=== PATIENT | female | born 1965 | race Caucasian/White ===

== ENCOUNTER 2017-03-19 07:58 | Emergency (ER) | payer MEDICARE, OTHER ==
[~2017-03-19] VITALS: Ht 170.2 cm; Wt 83.9 kg
[~2017-03-19 07:58] MED LIST: ADVAIR 500-501 EACH IH; ALBUTEROL SULF8.5 GM INH; ASPIRIN EC81 MG PO; COREG12.5 MG PO; CYPROHEPTADINE H4 MG PO; FISH OIL300 MG PO; GABAPENTIN100 MG PO; LASIX20 MG PO; LEXAPRO10 MG PO; LISINOPRIL2.5 MG PO; MULTI VIT; NORCO 5-325 TA1 EACH PO; OXYCODONE HCL5 MG PO; PERCOCET 10-321 EACH PO; PREDNISONE20 MG PO; PRILOSEC20 MG PO; SINGULAIR10 MG PO; ULTRAM50 MG PO
[2017-03-19] MEDS ORDERED: PREDNISONE10 MG PO (08:10)
[2017-03-19] MEDS ORDERED: SPIRONOLACTONE25 MG PO (08:10)
[2017-03-19] MEDS ORDERED: ADVAIR HFA 115-12 GM INH (08:19)
--- OUTSIDE RECORDS SUMMARY | 2017-03-19 08:22 | XMS | Clinical Summary ---
Demographics + + + | Address | [address] | | | [place] [address] | + + + | Home Phone | | + + + | Preferred Language | Unknown | + + + | Marital Status | Single | + + + | Amish Affiliation | Unknown | + + + | Race | White | + + + | Ethnic Group | Not or | + + + Author + + + | Author | [facility] | + + + | Organization | [facility] | + + + | Address | Unknown | + + + | Phone | Unavailable | + + + Support +------+ + + + +-------+ | Name | Relationship | Address | Phone | +------+ + + + +-------+ ECON | [address] | | [place] | [phone] | +------+ + + + +-------+ Care Team Providers + +------+ + | Care Consultative Sales Associate Name | Role | Phone | + +------+ + | Louis Otoole MD | PP | Unavailable | + +------+ + Source Comments [facility] is fully live on both [facility] Ambulatory and [facility] InPatient.[facility] Allergies + + + + + + | Active Allergy | Reactions | Severity | Noted | Comments | | | | | Date | | + + + + + + | Olmesartan | | | 05/15/19 | | | | | | 09 | | + + + + + + | Metoclopramide Hcl | | | 05/15/19 | Raised LFTs | | | | | 09 | | + + + + + + Current Medications + + +-------+---------+------+------+-------+ | Prescription | Sig. | Disp. | Refills | Star | End | Statu | | | | | | t | Date | s | | | | | | Date | | | + + +-------+---------+------+------+-------+ | COREG 25 mg Oral | Take 25 mg by mouth | | | | | Activ | | Tablet | two times daily. | | | | | e | | | Administer with | | | | | | | | food. | | | | | | + + +-------+---------+------+------+-------+ | LANOXIN 250 mcg | Take 250 mcg by | | | | | Activ | | Oral Tablet | mouth once daily. | | | | | e | + + +-------+---------+------+------+-------+ | LASIX 40 mg Oral | Take 40 mg by mouth | | | | | Activ | | Tablet | once daily. | | | | | e | + + +-------+---------+------+------+-------+ | SINGULAIR 10 mg | Take 10 mg by mouth | | | | | Activ | | Oral Tablet | once daily in the | | | | | e | | | evening. | | | | | | + + +-------+---------+------+------+-------+ | PRILOSEC 20 mg | Take 20 mg by mouth | | | | | Activ | | Oral Capsule, | once daily. | | | | | e | | Delayed | | | | | | | | Release(E.C.) | | | | | | | + + +-------+---------+------+------+-------+ | spironolactone 25 | Take 25 mg by mouth | | | | | Activ | | mg Oral Tablet | once daily. | | | | | e | + + +-------+---------+------+------+-------+ Active Problems Not on file Social History + +-------+ +--------+------+ | Tobacco Use | Types | Packs/Day | Years | Date | | | | | Used | | + +-------+ +--------+------+ | Never Smoker | | | | | + +-------+ +--------+------+ + + + | Sex Assigned at | Date Recorded | | | | + + + | Not on file | | + + + Last Filed Vital Signs + + + + | Vital Sign | Reading | Time Taken | + + + + | Blood Pressure | 100/70 | 05/15/2008 2:31 PM PST | + + + + | Pulse | 83 | 05/15/2008 2:31 PM PST | + + + + | Temperature | - | - | + + + + | Respiratory Rate | - | - | + + + + | Oxygen Saturation | 95% | 05/15/2008 2:31 PM PST | + + + + | Inhaled Oxygen | - | - | | Concentration | | | + + + + | Weight | 75 kg (165 lb 4.8 | 05/15/2008 2:31 PM PST | | | oz) | | + + + + | Height | 167.6 cm (5' 6") | 05/15/2008 2:31 PM PST | + + + + | Body Mass Index | 26.68 | 05/15/2008 2:31 PM PST | + + + + Plan of Treatment + + + + + | Health Maintenance | Due Date | Last Done | Comments | + + + + + | INFLUENZA VACCINE | | | | | (FLU SHOT) | 7 | | | + + + + + Results Not on filefrom Last 3 Months
== END 2017-03-19 08:52 | disposition home or self-care (01) ==
LOC: ED 07:58
DX: J45.901 Unspecified asthma with (acute) exacerbation (principal); J06.9 Acute upper respiratory infection, unspecified; I50.9 Heart failure, unspecified; Z90.710 Acquired absence of both cervix and uterus; Z90.49 Acquired absence of other specified parts of digestive tract; Z88.8 Allergy status to other drugs, medicaments and biological substances; Z79.899 Other long term (current) drug therapy; Z79.52 Long term (current) use of systemic steroids; Z79.82 Long term (current) use of aspirin
CPT/HCPCS: 94640; 99283

== ENCOUNTER 2017-06-17 07:58 | Emergency (ER) | payer MEDICARE, OTHER ==
[~2017-06-17] VITALS: Ht 170.2 cm; Wt 83.9 kg
[~2017-06-17 07:58] MED LIST changes: +ADVAIR HFA 115-12 GM INH; +PREDNISONE10 MG PO; +SPIRONOLACTONE25 MG PO
[2017-06-17] MEDS ORDERED: FLUTICASONE PRO16 GM NAS (08:07)
--- OUTSIDE RECORDS SUMMARY | 2017-06-17 08:16 | XMS | Clinical Summary ---
Demographics + + + | Address | [address] | | | [place] [address] | + + + | Home Phone | | + + + | Preferred Language | Unknown | + + + | Marital Status | Single | + + + | Restorationism Affiliation | Unknown | + + + [...] | Unavailable | + + + Support + + + + + | Name | Relationship | Address | Phone | + + + + + | ALYSSA CAO | ECON | [address] | | | | | [place] | | | | | [phone] | | + + + + + Care Team Providers + +------+ + | Care Engagement Executive Name | Role | Phone | + +------+ + | Louis Otoole MD | PP | Unavailable | + +------+ + Source Comments [facility] is fully live on both [facility] and [facility] Allergies + + + + + + [...]
--- OUTSIDE RECORDS SUMMARY | 2017-06-17 08:16 | XMS | Clinical Summary ---
Demographics + + + | Address | [address] | | | [place] [address] | + + + | Home Phone | | + + + | Preferred Language | Unknown | + + + | Marital Status | Single | + + + | Taoism Affiliation | Unknown | + + + [...] + | ALYSSA CAO | ECON | [address] | | | | | [place] | | | | | [phone] | | + + + + + Care Team Providers + +------+ + | Care Swimming Pool Serviceperson Name | Role | Phone | + +------+ + | Louis Otoole MD | PP | Unavailable | + +------+ + Source Comments [facility] Allergies + + + + + [...]
[2017-06-17] MEDS ORDERED: ADVAIR 250-501 EACH INH (09:50)
[2017-06-17] MEDS ORDERED: ALBUTEROL2.5 MG/3 M INH (09:50)
[2017-06-17] MEDS ORDERED: PREDNISONE10 MG PO (09:50)
== END 2017-06-17 10:08 | disposition home or self-care (01) ==
LOC: ED 07:58
DX: J45.901 Unspecified asthma with (acute) exacerbation (principal); I50.9 Heart failure, unspecified; Z88.8 Allergy status to other drugs, medicaments and biological substances; Z79.899 Other long term (current) drug therapy; Z79.82 Long term (current) use of aspirin
CPT/HCPCS: 71045; 80053; 83880; 85025; 96374; 99284; J2930

== ENCOUNTER 2017-08-08 07:33 | Emergency (ER) | payer MEDICARE, OTHER ==
[~2017-08-08] VITALS: Ht 170.2 cm; Wt 83.9 kg
[~2017-08-08 07:33] MED LIST changes: +ADVAIR 250-501 EACH INH; +ALBUTEROL2.5 MG/3 M INH; +FLUTICASONE PRO16 GM NAS
[2017-08-08] MEDS ORDERED: AUGMENTIN 875-1 EACH PO (12:26)
[2017-08-08] MEDS ORDERED: PROVENTIL HFA6.7 GM INH (12:26)
--- NOTE | 2017-08-08 13:50 | EKG ---
[facility] [address] [place] [address] Signed Sinus tachycardia with 1st degree AV block T wave abnormality, consider lateral ischemia Abnormal ECG No previous ECGs available Confirmed by PATRIA MARIO MD ([id number]) on 08/08/2017 1:50:03 PM Electronically Signed By: PATRIA MARIO MD 08/08/17 1350 PATIENT NAME: JAROD LINDQUIST TOO Electrocardiogram DATE OF : 61 PHYSICIAN: PATRIA MARIO MD REPORT #: [id number] REPORT IS CONFIDENTIAL AND NOT TO BE RELEASED WITHOUT AUTHORIZATION
--- NOTE | 2017-08-08 13:51 | EKG ---
[facility] [address] [place] [address] Signed Sinus tachycardia Possible Left atrial enlargement ST \T\ T wave abnormality, consider inferior ischemia ST \T\ T wave abnormality, consider anterolateral ischemia , which is more compared to the EKG from earlier today. Abnormal ECG When compared with ECG of 08-AUG-2017 08:47, (Unconfirmed) CA interval has decreased Confirmed by PATRIA MARIO MD ([id number]) on 08/08/2017 1:51:26 PM Electronically Signed By: PATRIA MARIO MD 08/08/17 1351 PATIENT NAME: JAROD LINDQUIST Electrocardiogram DATE OF : 61 PHYSICIAN: PATRIA MARIO MD REPORT #: [id number] REPORT IS CONFIDENTIAL AND NOT TO BE RELEASED WITHOUT AUTHORIZATION
== END 2017-08-08 14:26 | disposition home or self-care (01) ==
LOC: ED 07:33
DX: J21.9 Acute bronchiolitis, unspecified (principal); J01.90 Acute sinusitis, unspecified; R94.31 Abnormal electrocardiogram [ECG] [EKG]; I50.9 Heart failure, unspecified; J45.909 Unspecified asthma, uncomplicated; Z88.8 Allergy status to other drugs, medicaments and biological substances; Z79.82 Long term (current) use of aspirin; Z79.899 Other long term (current) drug therapy
CPT/HCPCS: 71046; 80053; 83690; 83880; 84484; 85025; 85379; 93005; 93010; 94640; 96361; 96374; 96375; 99283; J1100; J1885; J7120

== ENCOUNTER 2018-04-23 20:52 | Emergency (ER) | payer MEDICARE, MEDICAID ==
[~2018-04-23] VITALS: Ht 170.2 cm; Wt 83.9 kg
[~2018-04-23 20:52] MED LIST changes: +AUGMENTIN 875-1 EACH PO; +PROVENTIL HFA6.7 GM INH
[2018-04-23] MEDS ORDERED: GLUCOPHAGE500 MG PO (21:02)
== END 2018-04-23 23:00 | disposition home or self-care (01) ==
LOC: ED 20:52
DX: R51 Headache (principal); J45.909 Unspecified asthma, uncomplicated; I42.9 Cardiomyopathy, unspecified; I50.9 Heart failure, unspecified; Z90.710 Acquired absence of both cervix and uterus; Z88.8 Allergy status to other drugs, medicaments and biological substances; Z79.899 Other long term (current) drug therapy; Z79.82 Long term (current) use of aspirin
CPT/HCPCS: 96361; 96374; 96375; 99283-25; J1200; J1885; J2765; J7030

== ENCOUNTER 2018-12-10 12:36 | Emergency (ER) | payer MEDICARE, MEDICAID ==
[~2018-12-10] VITALS: Ht 170.2 cm; Wt 83.9 kg
[~2018-12-10 12:36] MED LIST changes: +GLUCOPHAGE500 MG PO
--- OUTSIDE RECORDS SUMMARY | 2018-12-10 12:40 | XMS ---
PreManage Notification: JAROD LINDQUIST Security Custodian Athletic Equipment Events No recent Security Events currently on file [facility] There are no care providers on record at this time. Juan Alberto has no Care Guidelines for this patient. Antoinette VISIT COUNT (12 MO.) 2 [facility] TOTAL 2 NOTE: Visits indicate total known visits. ED/C VISIT TRACKING (12 MO.) 12/10/2018 12:37 [facility] [place] TYPE: Emergency COMPLAINT: - EYE PROBLEM 04/23/2018 20:[address] [facility] [place] TYPE: Emergency COMPLAINT: - HEADACHE DIAGNOSES: - Headache - Unspecified asthma, uncomplicated - Acquired absence of both cervix and uterus - Cardiomyopathy, unspecified - Other mcc (current) drug therapy - Heart failure, unspecified - keno terminal operator (current) use of aspirin - Allergy status to other drugs, medicaments and biological substances status INPATIENT VISIT TRACKING (12 MO.) No inpatient visits to display in this time frame [email or web address]
[2018-12-10] MEDS ORDERED: TOBREX5 ML OPTH (13:07)
== END 2018-12-10 13:18 | disposition home or self-care (01) ==
LOC: ED 12:36
DX: S05.01XA Injury of conjunctiva and corneal abrasion without foreign body, right eye, initial encounter (principal); I50.9 Heart failure, unspecified; J45.909 Unspecified asthma, uncomplicated; Z88.8 Allergy status to other drugs, medicaments and biological substances; Z79.82 Long term (current) use of aspirin; Z79.899 Other long term (current) drug therapy; X58.XXXA Exposure to other specified factors, initial encounter
CPT/HCPCS: 99283

== ENCOUNTER 2018-12-13 11:05 | Emergency (ER) | payer MEDICARE, MEDICAID ==
[~2018-12-13] VITALS: Ht 170.2 cm; Wt 83.9 kg
[~2018-12-13 11:05] MED LIST changes: +TOBREX5 ML OPTH
--- OUTSIDE RECORDS SUMMARY | 2018-12-13 11:08 | XMS ---
PreManage Notification: JAROD LINDQUIST Security Epidemiology Internship Events No recent Security Events currently on file CRITERIA MET - [facility] - 2 Visits in 30 Days [facility] PHONE: [phone] Juan Alberto has no Care Guidelines for this patient. Antoinette VISIT COUNT (12 MO.) 3 [facility] TOTAL 3 NOTE: Visits indicate total known visits. ED/UCC VISIT TRACKING (12 MO.) 12/13/2018 11:05 [facility] TYPE: Emergency COMPLAINT: - EYE PROBLEM 12/10/2018 12:37 [facility] TYPE: Emergency COMPLAINT: - EYE PROBLEM DIAGNOSES: - Other long term acute care registered nurse (current) drug therapy - long term acute care registered nurse (current) use of aspirin - Ocular pain, right eye - Heart failure, unspecified - Exposure to other specified factors, initial encounter - Unspecified asthma, uncomplicated - Allergy status to other drugs, medicaments and biological substances status - Injury of conjunctiva and corneal abrasion without foreign body, right eye, initial encounter 04/23/2018 20:52 [facility] TYPE: Emergency COMPLAINT: - HEADACHE DIAGNOSES: - Headache - Unspecified asthma, uncomplicated - Acquired absence of both cervix and uterus - Cardiomyopathy, unspecified - Other correction (current) drug therapy - Heart failure, unspecified - retirement (current) use of aspirin - Allergy status to other drugs, medicaments and biological substances status INPATIENT VISIT TRACKING (12 MO.) No inpatient visits to display in this time frame [email or web address]
== END 2018-12-13 12:05 | disposition home or self-care (01) ==
LOC: ED 11:05
DX: H10.31 Unspecified acute conjunctivitis, right eye (principal); J45.909 Unspecified asthma, uncomplicated; I50.9 Heart failure, unspecified; Z88.8 Allergy status to other drugs, medicaments and biological substances; Z79.899 Other long term (current) drug therapy; Z79.84 Long term (current) use of oral hypoglycemic drugs; Z79.82 Long term (current) use of aspirin
CPT/HCPCS: 99283